=== PATIENT | male | born 1970 | race Caucasian/White ===

== ENCOUNTER 2021-11-19 11:14 | Emergency (ER) | payer BC ==
[2021-11-19] MEDS ORDERED: Sodium Chloride 0.9% 1,000 ML IV ONE ×2 (11:53→13:29)
[2021-11-19] MEDS ORDERED: HYDROmorphone 0.5 MG/0.5 ML Syringe IVPUSH ONE ×2 (11:53→15:53)
[2021-11-19] MEDS ORDERED: Ondansetron 4 MG/2 ML SDV IVPUSH ONE (11:53)
[2021-11-19] MEDS ORDERED: Sodium Chloride 0.9% 10 ML Syringe FLUSH PRN (12:07)
[2021-11-19] MEDS ORDERED: Iopamidol 612 MG/ML 100 ML Bottle IVPUSH ONE (12:07)
[2021-11-19 12:41] LABS: ACETAMINOPHEN 0 ug/mL (10-30)
[2021-11-19] MEDS ORDERED: Ketorolac 30 MG/ML SDV IVPUSH ONE (13:29)
[2021-11-19] MEDS ORDERED: Tamsulosin 0.4 MG Cap.ER PO ONE (13:29)
== END 2021-11-19 16:55 | disposition home or self-care (01) ==
LOC: JD.ED 11:14
DX: N20.0 Calculus of kidney (principal); I10 Essential (primary) hypertension; Z72.0 Tobacco use
CPT/HCPCS: 36415; 74177; 80053; 80143; 81001; 83735; 85025; 86140; 96374; 96375; 96376; 99284; A9270; J1170; J1885; J2405; J3490; J7030; Q9967